=== PATIENT | female | born 1930 | race Caucasian/White ===

== ENCOUNTER 2016-12-30 14:29 | Emergency (ER) | payer MEDICARE, BC ==
[2016-12-30 15:43] LABS: CHLORIDE,CL 98 mmol/L (98-107); SODIUM,NA 140 mmol/L (136-145)
[2016-12-30 17:03] VITALS: BP 163/77
--- NOTE | 2016-12-31 14:11 | EDM.PDOC ---
ED HPI GENERAL MEDICAL PROBLEM - General Chief Complaint: General Stated Complaint: FELL,HAS OPEN CUT Time Seen by Provider: 12/30/16 14:29 Source of Information: Reports: Patient - History of Present Illness INITIAL COMMENTS - FREE TEXT/NARRATIVE: Pt. states that she fell at her home today, striking her head. She states that she does not remember the even. She states that she doesn't think she had any chest pain, shortness of breath, or weakness prior to this event. She states that, post fall, she is experiencing some mild superficial scalp pain , consistent with striking head on an object during the fall. She states that she had to call her son after the fall, who states that she has offered no complaint and states that the pts. speech, gait, etc. are normal. Onset Date: 12/30/16 Onset Time: 14:15 Location: Reports: Head, Upper Extremity, Left Severity: Moderate Improves with: Reports: None - Related Data Allergies Allergy/AdvReac Type Severity Reaction Status Date / Time No Known Allergies Allergy Verified 11/18/14 09:32 Home Meds: Home Meds Aspirin [Halfprin] 81 mg PO BEDTIME 07/27/14 [History] Cholecalciferol (Vitamin D3) [Vitamin D3] 1 tab PO DAILY 07/27/14 [History] Docusate Sodium [Colace] 100 mg PO BID 07/27/14 [History] Esomeprazole [NexIUM] 1 cap PO DAILY 07/27/14 [History] Furosemide [Lasix] 2 tab PO BID 07/27/14 [History] Hydrocodone/Acetaminophen [[place] 5-325] 1 tab PO Q4H PRN 07/27/14 [History] Insulin Glargine,Hum.Rec.Anlog [Lantus Solostar] 10 units SQ BEDTIME 07/27/14 [ History] Losartan [Cozaar] 1 tab PO DAILY 07/27/14 [History] Naproxen Sodium [Aleve] 2 tab PO DAILY 07/27/14 [History] Ocgyt-1-Bfwm Ethyl Esters [Lovaza] 2 cap PO BID 07/27/14 [History] Potassium Chloride 2 tab PO DAILY 07/27/14 [History] Pravastatin [Pravachol] 20 mg PO DAILY 07/27/14 [History] Sertraline [Zoloft] 1 tab PO DAILY 07/27/14 [History] glipiZIDE [Glipizide ER] 1 tab PO DAILY 07/27/14 [History] metFORMIN [Glucophage] 1 tab PO BID 07/27/14 [History] Omeprazole [Prilosec] 30 mg pe PO DAILY 11/18/14 [History] Past Medical History Cardiovascular History: Reports: Bypass, High Cholesterol, Hypertension TISSUE 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: Reports: Polycystic Ovaries Endocrine/Metabolic History: Reports: Diabetes, Type II Social & Family History - Family History Family Medical History: Noncontributory - Tobacco Use Smoking Status *Q: Never Smoker - Caffeine Use Caffeine Use: Reports: None - Recreational Drug Use Recreational Drug Use: No ED ROS GENERAL - Review of Systems Review Of Systems: See Below Constitutional: Reports: No Symptoms HEENT: Reports: Other (left lateral face/ear pain) Respiratory: Reports: No Symptoms Cardiovascular: Reports: No Symptoms Endocrine: Reports: No Symptoms GI/Abdominal: Reports: No Symptoms : Reports: No Symptoms Musculoskeletal: Reports: Arm Pain (left forearm skin tear) Skin: Reports: Other Neurological: Reports: Other (fall, struck head, + LOC) Psychiatric: Reports: No Symptoms Hematologic/Lymphatic: Reports: No Symptoms Immunologic: Reports: No Symptoms ED EXAM, GENERAL - Physical Exam Exam: See Below Exam Limited By: No Limitations General Appearance: Alert, WD/WN, No Apparent Distress Eye Exam: Bilateral Eye: EOMI, Normal Fundi, Normal Inspection, PERRL Ears: Normal External Exam, Normal Canal, Hearing Grossly Normal, Normal TMs Nose: Normal Inspection, Normal Mucosa, No Blood Throat/Mouth: Normal Inspection, Normal Lips, Normal Teeth, Normal Gums, Normal Oropharynx, Normal Voice, No Airway Compromise Head: Atraumatic, Normocephalic, Facial Tenderness (pain to L lateral aspect of face. No deformity/edema noted.) Neck: Normal Inspection, Supple, Non-Tender, Full Range of Motion Respiratory/Chest: No Respiratory Distress, Lungs Clear, Normal Breath Sounds, No Accessory Muscle Use, Chest Non-Tender Cardiovascular: Normal Peripheral Pulses, Regular Rate, Rhythm, No Edema, No Gallop, No JVD, No Murmur, No Rub GI/Abdominal: Normal Bowel Sounds, Soft, Non-Tender, No Organomegaly, No Distention, No Abnormal Bruit, No Mass, Pelvis Stable (Female) Exam: Deferred Rectal (Female) Exam: Deferred Back Exam: Normal Inspection, Full Range of Motion Extremities: Normal Inspection, Normal Range of Motion, Non-Tender, No Pedal Edema, Normal Capillary Refill Neurological: Alert, Oriented, CN II-XII Intact, Normal Cognition, Normal Gait, Normal Reflexes, No Motor/Sensory Deficits Psychiatric: Normal Affect Skin Exam: Warm, Dry, Wound/Incision (skin tear L forearm) EKG INTERPRETATION Rhythm: NSR Course - Vital Signs Last Recorded V/S: Last Vital Signs Temp 36.6 C 12/30/16 14:29 Pulse 76 12/30/16 14:52 Resp 18 12/30/16 14:29 BP 163/77 H 12/30/16 15:00 Pulse Ox 95 12/30/16 14:52 - Orders/Labs/Meds Labs: Laboratory Tests 12/30/16 12/30/16 12/30/16 Range/Units 15:14 15:14 15:14 WBC 4.6 (4.0-10.0) x10^3/uL RBC 3.94 L (4.00-5.50) x10^6/uL Hgb 11.6 L (12.0-16.0) g/dL Hct 35.6 (33.0-47.0) % MCV 90.4 (78.0-93.0) fL MCH 29.4 (26.0-32.0) pg MCHC 32.6 (32.0-36.0) g/dL RDW Coeff of Letty 14.9 (10.0-15.0) % Plt Count 129 L (130-400) x10^3/uL Neut % (Auto) 57.5 (50.0-80.0) % Lymph % (Auto) 29.1 (25.0-50.0) % [place] % (Auto) 9.1 (2.0-11.0) % Eos % (Auto) 4.1 H (0.0-4.0) % Baso % (Auto) 0.2 (0.2-1.2) % PT 10.6 (9.8-11.8) SEC INR 1.0 L (2.0-3.5) Sodium 140 (136-145) mmol/L Potassium 3.5 (3.5-5.1) mmol/L Chloride 98 (98-107) mmol/L Carbon Dioxide 31 (21-32) mmol/L BUN 33 H (7-18) mg/dL Creatinine 1.5 H (0.55-1.02) mg/dL Est Cr Clr Drug Dosing TNP Estimated GFR (MDRD) 33 Glucose 166 H (74-106) mg/dL Calcium 9.4 (8.5-10.1) mg/dL Corrected Calcium 9.64 (8.5-10.1) mg/dL Total Bilirubin 0.5 (0.2-1.0) mg/dL AST 19 (15-37) U/L ALT 21 (14-59) U/L Alkaline Phosphatase 48 (46-116) U/L Troponin I < 0.017 (<=0.056) ng/mL Total Protein 7.6 (6.4-8.2) g/dL Albumin 3.7 (3.4-5.0) g/dL Globulin 3.9 Albumin/Globulin Ratio 0.95 - Radiology Interpretation Free Text/Narrative:: CT brain and c-spine are both negative for acute pathology Departure - Departure Time of Disposition: 15:00 Disposition: Home, Self-Care 01 Condition: Good Clinical Impression: Fall, Closed head injury with brief loss of consciousness - Discharge Information Instructions: Head Injury, Adult Referrals: PCP,Unknown [Primary Care Provider] - Forms: ED Department Discharge Additional Instructions: Home to rest. Return to ER if increasing headache, confusion, difficulty with speaking, walking, etc. Also return if you have any chest pain or shortness of breath. Follow-up in clinic in 7-10 days. Keep dressings on skin tears for 4 days. - Assessment/Plan Assessment:: closed head injury syncopal vs. mechanical fall Plan: Home to rest. Return to ER if increasing headache, confusion, difficulty with speaking, walking, etc. Also return if you have any chest pain or shortness of breath. Follow-up in clinic in 7-10 days. Keep dressings on skin tears for 4 days.
== END 2016-12-30 16:20 | disposition home or self-care (01) ==
LOC: VM.ED 14:29
DX: S06.9X9A Unspecified intracranial injury with loss of consciousness of unspecified duration, initial encounter (principal); S51.812A Laceration without foreign body of left forearm, initial encounter; E78.00 Pure hypercholesterolemia, unspecified; I10 Essential (primary) hypertension; E11.9 Type 2 diabetes mellitus without complications; Z79.82 Long term (current) use of aspirin; Z79.899 Other long term (current) drug therapy; Z79.84 Long term (current) use of oral hypoglycemic drugs; Z79.4 Long term (current) use of insulin; W01.10XA Fall on same level from slipping, tripping and stumbling with subsequent striking against unspecified object, initial encounter
CPT/HCPCS: 36415; 70450; 80053; 84484; 85025; 85610; 93005; 93010; 99284; 99284-GF-25

== ENCOUNTER 2020-10-24 08:13 | Emergency (ER) | payer MEDICARE, BC ==
[2020-10-24] MEDS ORDERED: Sodium Chloride 0.9% 10 ML Syringe FLUSH PRN (08:21)
[2020-10-24 08:55] VITALS: PULSE 76
[2020-10-24 09:05] VITALS: BP 162/57
--- NOTE | 2020-10-24 09:11 | CR ---
[id number] RAD/RAD Chest PA or AP 1V EXAM: RAD Chest PA or AP 1V INDICATION: HYPERTENSION. COMPARISON: None. DISCUSSION/IMPRESSION: Median sternotomy. Cardiomediastinal silhouette is normal in size and contour. Lungs are clear. No pleural effusion or pneumothorax. Alfredo Healy MD 10/24/20 0997 Thank you for allowing us to participate in the care of your patient.
[2020-10-24 09:15] LABS: CHLORIDE,CL 105 mmol/L (98-107); SODIUM,NA 139 mmol/L (136-145)
[2020-10-24 09:17] LABS: ACETAMINOPHEN 0 ug/ml (10-30)
--- NOTE | 2020-10-24 09:42 | CT ---
[id number] CT/CT Head WO IV EXAM: CT Head WO IV CLINICAL DATA: HEADACHE, HYPERTENSION. COMPARISON STUDY: 2018. FINDINGS: No intracranial hemorrhage, extra-axial fluid collection, mass, or acute ischemia. No hydrocephalus. 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 Findings are similar to 2018. Calvarium intact. Partial left mastoid effusion, nonspecific etiology. Right mastoid air cells are clear. Bilateral middle ear cavities are clear. IMPRESSION: No acute intracranial findings. Partial left mastoid effusion. Alfredo Healy MD 10/24/20 0962 Thank you for allowing us to participate in the care of your patient.
[2020-10-24] MEDS ORDERED: Metoclopramide 10 MG/2 ML SDV IVPUSH ONE (09:50)
--- NOTE | 2020-10-31 02:37 | EDM.PDOC ---
ED HPI GENERAL MEDICAL PROBLEM - General Chief Complaint: General Stated Complaint: Weakness Time Seen by Provider: 10/24/20 08:30 Source of Information: Reports: Patient History Limitations: Reports: No Limitations - History of Present Illness INITIAL COMMENTS - FREE TEXT/NARRATIVE: Pt. presents to ER with complaints of headache and global weakness. She states that she woke up with the symptoms. She states that she has a history of headache intermittently in the last. Denies any head trauma. BFAST performed by EMS was negative. Pt. denies any head trauma. No fever or chills. She denies any chest pain or shortness of breath. She was hypertensive, and states that she did not take her morning medications. Pt. was alert and orient, sometimes slow to respond. She denies any numbness/tingling in extremities. No problems with speech or ambulation. Onset Date: 10/24/20 Location: Reports: Head, Generalized Quality: Reports: Ache, Throbbing Lower Back Pain Score (Numeric/FACES): 3 - Related Data Allergies Allergy/AdvReac Type Severity Reaction Status Date / Time No Known Allergies Allergy Verified 10/24/20 08:44 Home Meds: Home Meds Aspirin [Halfprin] 81 mg PO BEDTIME 07/27/14 [History] Cholecalciferol (Vitamin D3) [Vitamin D3] 1 tab PO DAILY 07/27/14 [History] Docusate Sodium [Colace] 100 mg PO BID 07/27/14 [History] Esomeprazole [NexIUM] 1 cap PO DAILY 07/27/14 [History] Furosemide [Lasix] 2 tab PO BID 07/27/14 [History] Hydrocodone/Acetaminophen [[place] 5-325] 1 tab PO Q4H PRN 07/27/14 [History] Insulin Glargine,Hum.Rec.Anlog [Lantus Solostar] 10 units SQ BEDTIME 07/27/14 [History] Losartan [Cozaar] 1 tab PO DAILY 07/27/14 [History] Naproxen Sodium [Aleve] 2 tab PO DAILY 07/27/14 [History] Nyxhl-8-Lnri Ethyl Esters [Lovaza] 2 cap PO BID 07/27/14 [History] Potassium Chloride 2 tab PO DAILY 07/27/14 [History] Pravastatin [Pravachol] 20 mg PO DAILY 07/27/14 [History] Sertraline [Zoloft] 1 tab PO DAILY 07/27/14 [History] glipiZIDE [Glipizide ER] 1 tab PO DAILY 07/27/14 [History] metFORMIN [Glucophage] 1 tab PO BID 07/27/14 [History] Omeprazole [Prilosec] 30 mg pe PO DAILY 11/18/14 [History] Past Medical History Cardiovascular History: Reports: Bypass, High Cholesterol, Hypertension 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 Endocrine/Metabolic History: Reports: Diabetes, Type II Social & Family History - Family History Family Medical History: No Pertinent Family History - Tobacco Use Tobacco Use Status *Q: Unknown Ever Used Tobacco - Caffeine Use Caffeine Use: Reports: None ED ROS GENERAL - Review of Systems Review Of Systems: See Below Constitutional: Reports: No Symptoms HEENT: Reports: No Symptoms Respiratory: Reports: No Symptoms Cardiovascular: Reports: No Symptoms Endocrine: Reports: No Symptoms GI/Abdominal: Reports: No Symptoms : Reports: No Symptoms Musculoskeletal: Reports: No Symptoms Skin: Reports: No Symptoms Neurological: Reports: Confusion, Headache. Denies: Dizziness, Numbness, Paresthesia, Seizure, Syncope, Trouble Speaking, Difficulty Walking, Weakness, Change in Speech, Gait Disturbance Psychiatric: Reports: No Symptoms Hematologic/Lymphatic: Reports: No Symptoms Immunologic: Reports: No Symptoms ED EXAM, GENERAL - Physical Exam Exam: See Below Exam Limited By: No Limitations General Appearance: Alert, WD/WN, No Apparent Distress Eye Exam: Bilateral Eye: EOMI, PERRL Head: Atraumatic, Normocephalic Neck: Normal Inspection, Supple, Non-Tender Respiratory/Chest: No Respiratory Distress, Lungs Clear, Normal Breath Sounds, No Accessory Muscle Use, Chest Non-Tender Cardiovascular: Normal Peripheral Pulses, Regular Rate, Rhythm, No Edema, No JVD Peripheral Pulses: 4+: Radial (R) GI/Abdominal: Soft, Non-Tender, No Distention, No Mass (Female) Exam: Deferred Rectal (Female) Exam: Deferred Back Exam: Normal Inspection, Full Range of Motion Extremities: Normal Inspection, Normal Range of Motion, No Pedal Edema, Normal Capillary Refill Neurological: Alert, Oriented, CN II-XII Intact, Normal Reflexes, No Motor/Sensory Deficits, Confused (mildly confused about history. She was alert to time, date, and place.), Slow to Respond Psychiatric: Normal Affect, Normal Mood #1 Interpretation Rhythm: NSR [place]: Normal P-Wave: Present QRS: Normal ST-T: Normal QT: Normal Course - Vital Signs Last Recorded V/S: Last Vital Signs Temp 36.3 C 10/24/20 08:46 Pulse 76 10/24/20 08:50 Resp 15 10/24/20 08:50 BP 162/57 H 10/24/20 08:50 Pulse Ox 96 10/24/20 08:50 - Orders/Labs/Meds Labs: Laboratory Tests 10/24/20 10/24/20 10/24/20 Range/Units 08:35 08:40 08:40 WBC 3.7 L (4.0-10.0) x10^3/uL RBC 3.93 L (4.00-5.50) x10^6/uL Hgb 10.7 L (12.0-16.0) g/dL Hct 33.9 (33.0-47.0) % MCV 86.3 D (78.0-93.0) fL MCH 27.2 (26.0-32.0) pg MCHC 31.6 L (32.0-36.0) g/dL RDW Coeff of Letty 15.8 H (10.0-15.0) % Plt Count 164 (130-400) x10^3/uL Neut % (Auto) 68.6 (50.0-80.0) % Lymph % (Auto) 14.7 L (25.0-50.0) % [place] % (Auto) 10.1 (2.0-11.0) % Eos % (Auto) 6.3 H (0.0-4.0) % Baso % (Auto) 0.3 (0.2-1.2) % PT 9.8 L (9.9-12.5) SEC INR 0.9 L (2.0-3.5) APTT (25.6-32.8) SEC Sodium (136-145) mmol/L Potassium (3.5-5.1) mmol/L Chloride (98-107) mmol/L Carbon Dioxide (21-32) mmol/L Anion Gap (5-15) mmol/L BUN (7-18) mg/dL Creatinine (0.55-1.02) mg/dL Est Cr Clr Drug Dosing Estimated GFR (MDRD) Glucose (70-99) mg/dL Calcium (8.5-10.1) mg/dL Corrected Calcium (8.5-10.1) mg/dL Magnesium (1.8-2.4) mg/dL Total Bilirubin (0.2-1.0) mg/dL AST (15-37) U/L ALT (14-59) U/L Alkaline Phosphatase (46-116) U/L Troponin I High Sens (<=51) ng/L C-Reactive Protein (<=0.9) mg/dL Total Protein (6.4-8.2) g/dL Albumin (3.4-5.0) g/dL Globulin Albumin/Globulin Ratio Urine Color Yellow (YELLOW) Urine Appearance Clear (CLEAR) Urine pH 5.5 (5.0-8.0) Ur Specific [place] 1.020 Urine Protein Trace H (NEGATIVE) mg/dL Urine Glucose (UA) 250 H (NEGATIVE) mg/dL Urine Ketones Negative (NEGATIVE) mg/dL Urine Occult Blood Negative (NEGATIVE) Urine Nitrite Negative (NEGATIVE) Urine Bilirubin Negative (NEGATIVE) Urine Urobilinogen 0.2 (0.2) EU/dL Ur Leukocyte Esterase Negative (NEGATIVE) Urine RBC 0-5 (NOT SEEN) /HPF Urine WBC 0-5 (NOT SEEN) /HPF Ur Squamous Epith Cells Occasional H (NOT SEEN) /HPF Urine Bacteria Rare (NOT SEEN) /HPF Urine Mucus Rare H (NOT SEEN) /LPF Acetaminophen (10-30) ug/ml 10/24/20 10/24/20 Range/Units 08:40 08:40 WBC (4.0-10.0) x10^3/uL RBC (4.00-5.50) x10^6/uL Hgb (12.0-16.0) g/dL Hct (33.0-47.0) % MCV (78.0-93.0) fL MCH (26.0-32.0) pg MCHC (32.0-36.0) g/dL RDW Coeff of Letty (10.0-15.0) % Plt Count (130-400) x10^3/uL Neut % (Auto) (50.0-80.0) % Lymph % (Auto) (25.0-50.0) % [place] % (Auto) (2.0-11.0) % Eos % (Auto) (0.0-4.0) % Baso % (Auto) (0.2-1.2) % PT (9.9-12.5) SEC INR (2.0-3.5) APTT 22.5 L (25.6-32.8) SEC Sodium 139 (136-145) mmol/L Potassium 4.0 (3.5-5.1) mmol/L Chloride 105 (98-107) mmol/L Carbon Dioxide 30 (21-32) mmol/L Anion Gap 8.0 (5-15) mmol/L BUN 27 H (7-18) mg/dL Creatinine 1.7 H (0.55-1.02) mg/dL Est Cr Clr Drug Dosing TNP Estimated GFR (MDRD) 28 Glucose 186 H (70-99) mg/dL Calcium 8.4 L (8.5-10.1) mg/dL Corrected Calcium 9.1 (8.5-10.1) mg/dL Magnesium 1.9 (1.8-2.4) mg/dL Total Bilirubin 0.3 (0.2-1.0) mg/dL AST 14 L (15-37) U/L ALT 18 (14-59) U/L Alkaline Phosphatase 98 (46-116) U/L Troponin I High Sens 6 (<=51) ng/L C-Reactive Protein 0.7 (<=0.9) mg/dL Total Protein 7.3 (6.4-8.2) g/dL Albumin 3.1 L (3.4-5.0) g/dL Globulin 4.2 Albumin/Globulin Ratio 0.74 Urine Color (YELLOW) Urine Appearance (CLEAR) Urine pH (5.0-8.0) Ur Specific [place] Urine Protein (NEGATIVE) mg/dL Urine Glucose (UA) (NEGATIVE) mg/dL Urine Ketones (NEGATIVE) mg/dL Urine Occult Blood (NEGATIVE) Urine Nitrite (NEGATIVE) Urine Bilirubin (NEGATIVE) Urine Urobilinogen (0.2) EU/dL Ur Leukocyte Esterase (NEGATIVE) Urine RBC (NOT SEEN) /HPF Urine WBC (NOT SEEN) /HPF Ur Squamous Epith Cells (NOT SEEN) /HPF Urine Bacteria (NOT SEEN) /HPF Urine Mucus (NOT SEEN) /LPF Acetaminophen 0 L (10-30) ug/ml Meds: Medications Discontinued Medications Generic Name Dose Route Start Last Admin Trade Name Joshua PRN Reason Stop Dose Admin Metoclopramide HCl 10 mg 10/24/20 09:50 10/24/20 10:07 Metoclopramide 10 Mg/2 Ml Sdv IVPUSH 10/24/20 09:51 10 mg ONETIME ONE Administration Sodium Chloride 10 ml 10/24/20 08:21 Sodium Chloride 0.9% 10 Ml Syringe FLUSH ASDIRECTED PRN Keep Vein Open - Radiology Interpretation Free Text/Narrative:: CT brain negative for acute pathology. Chest x-ray negative for acute process. - Re-Assessments/Exams Free Text/Narrative Re-Assessment/Exam: Pt. was given reglan IV. She reported significant improvement in headache after the medication. She was observed for a period of time. Neuro status remained normal. Departure - Departure Time of Disposition: 10:30 Disposition: Home, Self-Care 01 Condition: Good Clinical Impression: Headache, Hypertension - Discharge Information Instructions: Hypertension, Adult, [id number] Referrals: Irene Garrido MD [Primary Care Provider] - Forms: ED Department Discharge Additional Instructions: Home to rest. I suggest starting the lisinopril again. Recheck in clinic in 7-10 days. Return to ER if she has worsening weakness, chest pain, shortness of breath, or call if you have questions. Sepsis Event Note (ED) - Evaluation Sepsis Screening Result: No Definite Risk - Problem List Review Problem List Initiated/Reviewed/Updated: Yes - Assessment/Plan Plan: Pt. had been on lisinopril but this was recently stopped. Advised her to start this again, but she was wants to check with Dr. Garrido first. Pt. BP did improve once her headache was treated. She requested to be discharged. She was offered observation in the hospital but stated she would return if she developed worsening discomfort, confusion, problems with speech or ambulation.
== END 2020-10-24 11:00 | disposition home or self-care (01) ==
LOC: SUPCPDRO 08:13 → VM.ED 08:13
DX: R51.9 Headache, unspecified (principal); I10 Essential (primary) hypertension; E78.00 Pure hypercholesterolemia, unspecified; E11.9 Type 2 diabetes mellitus without complications; Z79.82 Long term (current) use of aspirin; Z79.899 Other long term (current) drug therapy; Z79.4 Long term (current) use of insulin
CPT/HCPCS: 70450; 71045; 80053; 80143; 81001; 83735; 84484; 85025; 85610; 85730; 86140; 93005; 93010; 96374; 99284; 99285-25; J2765

== ENCOUNTER 2021-03-17 17:42 | Emergency (ER) | payer MEDICARE, BC ==
--- NOTE | 2021-03-17 18:10 | EDM.PDOC ---
ED HPI GENERAL MEDICAL PROBLEM - General Chief Complaint: General Stated Complaint: Became weak at mosque, went to knees. Had c/o constipation earlier today. Time Seen by Provider: 03/17/21 17:42 Source of Information: Reports: Patient, EMS, Family History Limitations: Reports: Other (pt has hx of some dementia) - History of Present Illness INITIAL COMMENTS - FREE TEXT/NARRATIVE: Was at mosque when she stated she had to go to the bathroom, became weak, went down to knees. EMS arrived, vitals ok, blood sugar ok. Arrived to ER with no neuro deficit other than memory, which is not new. Had c/o constipation earlier today, but eventually did have BM. Onset: Today, Sudden Onset Date: 03/17/21 Onset Time: 18:00 Duration: Improving Location: Reports: Generalized Associated Symptoms: Reports: Nausea/Vomiting, Weakness - Related Data Allergies Allergy/AdvReac Type Severity Reaction Status Date / Time No Known Allergies Allergy Verified 10/24/20 08:44 Home Meds: Home Meds Aspirin [Halfprin] 81 mg PO BEDTIME 07/27/14 [History] Cholecalciferol (Vitamin D3) [Vitamin D3] 1 tab PO DAILY 07/27/14 [History] Docusate Sodium [Colace] 100 mg PO BID 07/27/14 [History] Esomeprazole [NexIUM] 1 cap PO DAILY 07/27/14 [History] Furosemide [Lasix] 2 tab PO BID 07/27/14 [History] Hydrocodone/Acetaminophen [Maynard 5-325] 1 tab PO Q4H PRN 07/27/14 [History] Insulin Glargine,Hum.Rec.Anlog [Lantus Solostar] 10 units SQ BEDTIME 07/27/14 [History] Losartan [Cozaar] 1 tab PO DAILY 07/27/14 [History] Naproxen Sodium [Aleve] 2 tab PO DAILY 07/27/14 [History] [id number] Ethyl Esters [Lovaza] 2 cap PO BID 07/27/14 [History] Potassium Chloride 2 tab PO DAILY 07/27/14 [History] Pravastatin [Pravachol] 20 mg PO DAILY 07/27/14 [History] Sertraline [Zoloft] 1 tab PO DAILY 07/27/14 [History] glipiZIDE [Glipizide ER] 1 tab PO DAILY 07/27/14 [History] metFORMIN [Glucophage] 1 tab PO BID 07/27/14 [History] Omeprazole [Prilosec] 30 mg pe PO DAILY 11/18/14 [History] Past Medical History Cardiovascular History: Reports: Bypass, High Cholesterol, Hypertension PEDODONTIST History: Reports: Polycystic Ovaries Endocrine/Metabolic History: Reports: Diabetes, Type II Social & Family History - Family History Family Medical History: No Pertinent Family History - Caffeine Use Caffeine Use: Reports: None ED ROS GENERAL - Review of Systems Review Of Systems: Comprehensive ROS is negative, except as noted in HPI. ED EXAM, GENERAL - Physical Exam Exam: See Below Exam Limited By: Other (memory deficit (not new)) General Appearance: Alert, No Apparent Distress, Obese Eye Exam: Bilateral Eye: EOMI, Normal Inspection Ears: Normal External Exam Nose: Normal Inspection, Normal Mucosa, No Blood Throat/Mouth: Normal Inspection, Normal Oropharynx, Normal Voice, No Airway Compromise Head: Atraumatic, Normocephalic Neck: Normal Inspection, Supple, Non-Tender, Full Range of Motion Respiratory/Chest: No Respiratory Distress, Lungs Clear, Normal Breath Sounds, Chest Non-Tender Cardiovascular: Normal Peripheral Pulses, Regular Rate, Rhythm, No Edema GI/Abdominal: Normal Bowel Sounds, Soft, Non-Tender, No Distention Back Exam: Normal Inspection, Full Range of Motion Extremities: Normal Inspection, Normal Range of Motion, Non-Tender, Normal Capillary Refill Neurological: Alert, Oriented, Memory Loss Remote Events, Memory Loss Recent Events Psychiatric: Normal Affect, Normal Mood Skin Exam: Warm, Dry, Intact, Normal Color, No Rash Lymphatic: No Adenopathy Course - Vital Signs Last Recorded V/S: Last Vital Signs Temp 97.5 F 03/17/21 18:30 Pulse 70 03/17/21 18:30 Resp 12 03/17/21 18:30 BP 109/40 L 03/17/21 18:30 Pulse Ox 91 L 03/17/21 18:30 - Orders/Labs/Meds Orders: Active Orders 24 hr Category Date Time Status Hemoccult [Fecal Occult Bld Scn Imm] [RC] ASDIRECTED Care 03/17/21 18:13 Active Sodium Chloride 0.9% [Normal Saline] 1,000 ml Med 03/17/21 18:15 Active IV ASDIRECTED Medication Orders Sodium Chloride (Normal Saline) 1,000 mls @ 150 mls/hr IV ASDIRECTED CROW Last Admin: 03/17/21 18:00 Dose: 150 mls/hr Documented by: CAESAR Labs: Laboratory Tests 03/17/21 03/17/21 03/17/21 Range/Units 17:55 18:20 18:20 WBC 8.6 (4.0-10.0) x10^3/uL RBC 4.25 (4.00-5.50) x10^6/uL Hgb 11.4 L (12.0-16.0) g/dL Hct 35.5 (33.0-47.0) % MCV 83.5 (78.0-93.0) fL MCH 26.8 (26.0-32.0) pg MCHC 32.1 (32.0-36.0) g/dL RDW Coeff of Letty 14.9 (10.0-15.0) % Plt Count 200 (130-400) x10^3/uL Immature Gran % (Auto) 0.20 (0.00-0.43) % Neut % (Auto) 83.5 H (50.0-80.0) % Lymph % (Auto) 10.1 L (25.0-50.0) % [place] % (Auto) 4.2 (2.0-11.0) % Eos % (Auto) 1.8 (0.0-4.0) % Baso % (Auto) 0.2 (0.2-1.2) % Neut # (Auto) 7.1 (1.8-7.7) x10^3/uL Lymph # (Auto) 0.9 L (1.0-4.8) x10^3/uL [place] # (Auto) 0.4 (0.0-0.8) x10^3/uL Eos # (Auto) 0.2 (0.0-0.5) x10^3/uL Baso # (Auto) 0.0 (0.0-0.2) x10^3/uL Immature Gran # (Auto) 0.02 (0.00-0.07) x10^3/uL Sodium 140 (136-145) mmol/L Potassium 3.9 (3.5-5.1) mmol/L Chloride 101 (98-107) mmol/L Carbon Dioxide 27 (21-32) mmol/L Anion Gap 15.9 H (5-15) mmol/L BUN 40 H (7-18) mg/dL Creatinine 1.7 H (0.55-1.02) mg/dL Est Cr Clr Drug Dosing TNP Estimated GFR (MDRD) 28 Glucose 204 H (70-99) mg/dL Calcium 8.9 (8.5-10.1) mg/dL Corrected Calcium 9.1 (8.5-10.1) mg/dL Magnesium 2.0 (1.8-2.4) mg/dL Total Bilirubin 0.5 (0.2-1.0) mg/dL AST 17 (15-37) U/L ALT 18 (14-59) U/L Alkaline Phosphatase 69 (46-116) U/L Troponin I High Sens 7 (<=51) ng/L Total Protein 7.8 (6.4-8.2) g/dL Albumin 3.7 (3.4-5.0) g/dL Globulin 4.1 Albumin/Globulin Ratio 0.90 Urine Color (YELLOW) Urine Appearance (CLEAR) Urine pH (5.0-8.0) Ur Specific Apex Urine Protein (NEGATIVE) mg/dL Urine Glucose (UA) (NEGATIVE) mg/dL Urine Ketones (NEGATIVE) mg/dL Urine Occult Blood (NEGATIVE) Urine Nitrite (NEGATIVE) Urine Bilirubin (NEGATIVE) Urine Urobilinogen (0.2) EU/dL Ur Leukocyte Esterase (NEGATIVE) Urine RBC (NOT SEEN) /HPF Urine WBC (NOT SEEN) /HPF Ur Squamous Epith Cells (NOT SEEN) /HPF Amorphous Sediment Urine Bacteria (NOT SEEN) /HPF Urine Mucus (NOT SEEN) /LPF Influenza Type A RNA Negative (NEGATIVE) Influenza Type B RNA Negative (NEGATIVE) SARS-CoV-2 RNA (KAYLEEN) Negative (NEGATIVE) 03/17/21 Range/Units 18:25 WBC (4.0-10.0) x10^3/uL RBC (4.00-5.50) x10^6/uL Hgb (12.0-16.0) g/dL Hct (33.0-47.0) % MCV (78.0-93.0) fL MCH (26.0-32.0) pg MCHC (32.0-36.0) g/dL RDW Coeff of Letty (10.0-15.0) % Plt Count (130-400) x10^3/uL Immature Gran % (Auto) (0.00-0.43) % Neut % (Auto) (50.0-80.0) % Lymph % (Auto) (25.0-50.0) % [place] % (Auto) (2.0-11.0) % Eos % (Auto) (0.0-4.0) % Baso % (Auto) (0.2-1.2) % Neut # (Auto) (1.8-7.7) x10^3/uL Lymph # (Auto) (1.0-4.8) x10^3/uL [place] # (Auto) (0.0-0.8) x10^3/uL Eos # (Auto) (0.0-0.5) x10^3/uL Baso # (Auto) (0.0-0.2) x10^3/uL Immature Gran # (Auto) (0.00-0.07) x10^3/uL Sodium (136-145) mmol/L Potassium (3.5-5.1) mmol/L Chloride (98-107) mmol/L Carbon Dioxide (21-32) mmol/L Anion Gap (5-15) mmol/L BUN (7-18) mg/dL Creatinine (0.55-1.02) mg/dL Est Cr Clr Drug Dosing Estimated GFR (MDRD) Glucose (70-99) mg/dL Calcium (8.5-10.1) mg/dL Corrected Calcium (8.5-10.1) mg/dL Magnesium (1.8-2.4) mg/dL Total Bilirubin (0.2-1.0) mg/dL AST (15-37) U/L ALT (14-59) U/L Alkaline Phosphatase (46-116) U/L Troponin I High Sens (<=51) ng/L Total Protein (6.4-8.2) g/dL Albumin (3.4-5.0) g/dL Globulin Albumin/Globulin Ratio Urine Color Yellow (YELLOW) Urine Appearance Clear (CLEAR) Urine pH 5.5 (5.0-8.0) Ur Specific Apex 1.015 Urine Protein 30 H (NEGATIVE) mg/dL Urine Glucose (UA) Negative (NEGATIVE) mg/dL Urine Ketones Negative (NEGATIVE) mg/dL Urine Occult Blood Negative (NEGATIVE) Urine Nitrite Negative (NEGATIVE) Urine Bilirubin Negative (NEGATIVE) Urine Urobilinogen 0.2 (0.2) EU/dL Ur Leukocyte Esterase Negative (NEGATIVE) Urine RBC 0-5 (NOT SEEN) /HPF Urine WBC 0-5 (NOT SEEN) /HPF Ur Squamous Epith Cells Occasional H (NOT SEEN) /HPF Amorphous Sediment Occasional Urine Bacteria Rare (NOT SEEN) /HPF Urine Mucus Rare H (NOT SEEN) /LPF Influenza Type A RNA (NEGATIVE) Influenza Type B RNA (NEGATIVE) SARS-CoV-2 RNA (KAYLEEN) (NEGATIVE) Meds: Medications Generic Name Dose Route Start Last Admin Trade Name Freq PRN Reason Stop Dose Admin Sodium Chloride 1,000 mls @ 150 mls/hr 03/17/21 18:15 03/17/21 18:00 Normal Saline IV 150 mls/hr ASDIRECTED CROW Administration Discontinued Medications Generic Name Dose Route Start Last Admin Trade Name Freq PRN Reason Stop Dose Admin Ondansetron HCl 4 mg 03/17/21 18:12 03/17/21 18:18 Ondansetron 4 Mg/2 Ml Sdv IVPUSH 03/17/21 18:13 4 mg ONETIME ONE Administration - Re-Assessments/Exams Free Text/Narrative Re-Assessment/Exam: 03/17/21 18:25 Pt had large, very loose BM with visible bright red blood. Hemocult tested positive. Likely hemorrhoids. Zofran given for nausea. 03/17/21 19:33 Free Text/Narrative Re-Assessment/Exam: 03/17/21 19:33 BP improved. States feeling better. Departure - Departure Time of Disposition: 19:45 Disposition: Home, Self-Care 01 Clinical Impression: Mild dehydration, Gastroenteritis - Discharge Information Instructions: Dehydration, Elderly, [id number], Diarrhea, Adult, [id number] Referrals: Irene Garrido MD [Primary Care Provider] - Forms: ED Department Discharge Additional Instructions: Take ondansetron as directed for nausea. Lots of fluids. If diarrhea persists, may use over the counter medications such as Immodium per label directions. Follow up with Primary Care Provider if condition worsens or does not resolve. Sepsis Event Note (ED) - Focused Exam Vital Signs: Vital Signs Temp Pulse Resp BP Pulse Ox 03/17/21 18:30 97.5 F 70 12 109/40 L 91 L - Problem List & Annotations (1) Gastroenteritis SNOMED Code(s): 79912838 Code(s): K52.9 - NONINFECTIVE GASTROENTERITIS AND COLITIS, UNSPECIFIED Status: Acute Current Visit: Yes (2) Mild dehydration SNOMED Code(s): 2069719091661 Code(s): E86.0 - DEHYDRATION Status: Acute Current Visit: Yes - Problem List Review Problem List Initiated/Reviewed/Updated: Yes - My Orders Last 24 Hours: My Active Orders 03/17/21 18:13 Hemoccult [Fecal Occult Bld Scn Imm] [RC] ASDIRECTED 03/17/21 18:15 Sodium Chloride 0.9% [Normal Saline] 1,000 ml IV ASDIRECTED - Assessment/Plan Last 24 Hours: My Active Orders 03/17/21 18:13 Hemoccult [Fecal Occult Bld Scn Imm] [RC] ASDIRECTED 03/17/21 18:15 Sodium Chloride 0.9% [Normal Saline] 1,000 ml IV ASDIRECTED
[2021-03-17] MEDS ORDERED: Ondansetron 4 MG/2 ML SDV IVPUSH ONE (18:12)
[2021-03-17] MEDS ORDERED: Sodium Chloride 0.9% 1,000 ML IV SCH (18:15)
[2021-03-17 18:38] VITALS: BP 109/40; PULSE 70
[2021-03-17 18:42] LABS: CORONAVIRUS COVID-19 NAA NEGATIVE (NEGATIVE)
[2021-03-17 18:58] LABS: CHLORIDE,CL 101 mmol/L (98-107); SODIUM,NA 140 mmol/L (136-145)
[2021-03-17 19:12] LABS: ANION GAP 15.9 mmol/L (5-15)
[2021-03-17] MEDS ORDERED: Take Home: Ondansetron 4 MG Tab.DIS, 5 Tab Pack PO ONE (19:33)
== END 2021-03-17 19:45 | disposition home or self-care (01) ==
LOC: VM.ED 17:42
DX: E86.0 Dehydration (principal); K52.9 Noninfective gastroenteritis and colitis, unspecified; E11.9 Type 2 diabetes mellitus without complications; I10 Essential (primary) hypertension; E78.00 Pure hypercholesterolemia, unspecified; Z79.82 Long term (current) use of aspirin; Z79.4 Long term (current) use of insulin; Z79.899 Other long term (current) drug therapy; Z20.822 Contact with and (suspected) exposure to COVID-19
CPT/HCPCS: 0240U; 36415; 80053; 81001; 83735; 84484; 85025; 96374; 99285; G0328; J2405; J7030